=== PATIENT | male | born 1975 | race Caucasian/White ===

== ENCOUNTER 2019-02-06 22:30 | Emergency (ER) | payer OTHER ==
[~2019-02-06] VITALS: Ht 185.4 cm; Wt 90.7 kg
[2019-02-07] MEDS ORDERED: PRED10 PO (01:30)
== END 2019-02-07 01:39 | disposition home or self-care (01) ==
LOC: ER 22:30
DX: L23.7 Allergic contact dermatitis due to plants, except food (principal)
CPT/HCPCS: 99282; J7512; Q0163